=== PATIENT | female | born 1980 | race Asian ===

== ENCOUNTER 2018-01-16 00:48 | Emergency (ER) | payer OTHER ==
[~2018-01-16] VITALS: Ht 170.2 cm; Wt 68.3 kg
--- NOTE | 2018-01-16 00:51 | ED.ADGEN ---
Past History Past Medical History: Anxiety, Depression, Other Adult General Chief Complaint Chief Complaint ".. I under a lot of stress... just moved here this past month.. and I ve been in bed constantly the past week... I ve been off my anxiety meds.. and I was on some antidepressant.. but .. I ve got a mother in law coming in....people at my house...My is the new commander at the snf here... This all started after my son 18 months ago...he made poor choices... '...I guess I am having prolonged grief... I am not suicidal..I got to be around for my boys 10 and 3....I think I just need to get over this... " HPI HPI Patient is a 37 year old female who presents with above hx and complaints anxiety and depression over he loss of her son 18 months ago. Pt. very anxious about stress of her new job and her co-responsibility. No thoughts of suicide reported. No drug or alcohol abuse. Pt. was on some anti- depressants [place]....Reportedly Paxil or Prozac did not work for her. Did have short course of Xanax. Pt never had problems in past with depression. Does have hx of irregular periods. 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 Pt. unable discussed her son . Review of Systems Review of Systems Constitutional: Denies fever or chills [] Eyes: Denies change in visual acuity, redness, or eye pain [] HENT: Denies nasal congestion or sore throat [] Respiratory: Denies cough or shortness of breath [] Cardiovascular: No additional information not addressed in HPI [] GI: Denies abdominal pain, nausea, vomiting, bloody stools or diarrhea [] : Denies dysuria or hematuria [] Increased vaginal bleeding Musculoskeletal: Denies back pain or joint pain [] Integument: Denies rash or skin lesions [] Neurologic: Denies headache, focal weakness or sensory changes [] Endocrine: Denies polyuria or polydipsia [] All other systems were reviewed and found to be within normal limits, except as documented in this note. Family History Family History Non-contributory Current Medications Current Medications See Nursing for home meds Allergies Allergies Allergies Coded Allergies Type Severity Reaction Last Updated Verified No Known Drug Allergies 01/16/18 No Physical Exam Physical Exam Constitutional: Well developed, well nourished, moderately acute emotional distress, tearful appearance. HENT: Normocephalic, atraumatic, bilateral external ears normal, oropharynx moist, no oral exudates, nose normal. Eyes: PERRLA, EOMI, conjunctiva normal, no discharge. Neck: Normal range of motion, no tenderness, supple, no stridor. Cardiovascular:Heart rate regular rhythm, no murmur Lungs & Thorax: Bilateral breath sounds clear to auscultation Abdomen: Bowel sounds normal, soft, no tenderness, no masses, no pulsatile masses. Skin: Warm, dry, no erythema, no rash. Back: No tenderness, no CVA tenderness. Extremities: No tenderness, no cyanosis, no clubbing, ROM intact, no edema. Neurologic: Alert and oriented X 3, normal motor function, normal sensory function, no focal deficits noted. Psychologic: Affect anxious and depressed, judgement normal, mood depressed. Unable to talk about her sons . Pt. denies suicidal ideation. EKG EKG Declined[] Radiology/Procedures Radiology/Procedures [] Course & Med Decision Making Course & Med Decision Making Pertinent Labs and Imaging studies reviewed. (See chart for details) Pt. declined any labs, or tele psych . interview. Given referral to [facility] since she did not want to use [facility]. Pt. encourage to return if any concerns if wished labs. [] Final Impression Final Impression 1. Depression- Grief reaction more than 12 months ( 18mo) 2. Anxiety[] Dragon Disclaimer Dragon Disclaimer This electronic medical record was generated, in whole or in part, using a voice recognition dictation system. SIRI JONES MD January 16, 2018 00:51
[2018-01-16 02:00] VITALS: BP 139/82
== END 2018-01-16 02:17 | disposition home or self-care (01) ==
LOC: ER 00:48
DX: F43.23 Adjustment disorder with mixed anxiety and depressed mood (principal); N93.9 Abnormal uterine and vaginal bleeding, unspecified
CPT/HCPCS: 99284